=== PATIENT | male | born 1985 | race Caucasian/White ===

== ENCOUNTER 2023-10-20 11:44 | Day surgery (SDC) | payer MEDICARE ==
[2023-10-20] MEDS ORDERED: Decadron 4 MG INJ IV ONE (11:45)
[2023-10-20] MEDS ORDERED: Sodium Chloride 0.9(Preservative Free) 10 ML IJ ONE (11:45)
[2023-10-20] MEDS ORDERED: DIPRIVAN 200 MG/20 ML IV ONE (13:06)
--- NOTE | 2023-10-20 14:13 | XRAY ---
Indication: Left L4-S1 transforaminal CHRISTIAN. Intraoperative fluoroscopy provided for 18 seconds. 5 digital spot image submitted for interpretation demonstrates posterior needle tips projecting over the expected left L4 and L5 nerve roots. Small amount of contrast injected for needle tip placement. Correlate with intraoperative findings/report.
[2023-10-20] MEDS ORDERED: Lactated Ringers 1,000 ML IV ONE (14:36)
--- NOTE | 2023-10-20 15:00 | XRAY ---
18 seconds of fluoroscopy was used in surgery for a left L4-S1 transforaminal CHRISTIAN.
== END 2023-10-20 13:43 | disposition home or self-care (01) ==
LOC: SDC-PAIN 11:44
PROVIDERS: ATTEND Psychiatry & Neurology Pain Medicine
DX: M54.16 Radiculopathy, lumbar region (principal)
CPT/HCPCS: 64483; 64484; 72100; 77003; J1100; J2704; Q9966

== ENCOUNTER 2023-12-01 11:53 | Day surgery (SDC) | payer MEDICARE ==
[2023-12-01] MEDS ORDERED: Sodium Chloride 0.9(Preservative Free) 10 ML IJ ONE (11:54)
[2023-12-01] MEDS ORDERED: Depo-Medrol 40 MG/ML IM ONE (11:54)
[2023-12-01] MEDS ORDERED: DIPRIVAN 200 MG/20 ML IV ONE ×2 (13:45→13:55)
--- NOTE | 2023-12-01 16:32 | XRAY ---
Indication: Caudal CHRISTIAN. Intraoperative fluoroscopy provided for 25 seconds. 4 digital spot images submitted for interpretation demonstrates caudal needle tip projecting mid sacrum. Small amount of contrast injected for needle tip placement. Correlate with intraoperative findings/report.
--- NOTE | 2023-12-01 16:56 | XRAY ---
25 seconds of fluoroscopy was used in surgery for a caudal CHRISTIAN.
== END 2023-12-01 14:20 | disposition home or self-care (01) ==
LOC: SDC-PAIN 11:53
PROVIDERS: ATTEND Psychiatry & Neurology Pain Medicine
DX: M54.16 Radiculopathy, lumbar region (principal)
CPT/HCPCS: 62323; 72220; 77003; J2704; Q9966

== ENCOUNTER 2024-04-13 11:15 | Day surgery (SDC) | payer MEDICARE ==
[2024-04-13] MEDS ORDERED: methylPREDNISolone acetate IM ONE (11:16)
[2024-04-13] MEDS ORDERED: LIDOCAINE HCL 2% 100 MG/5 ML IJ ONE (11:16)
[2024-04-13] MEDS ORDERED: propofoL IV ONE (12:19)
--- NOTE | 2024-04-13 20:55 | XRAY ---
Indication: Bilateral L4-S1 MBB. Intraoperative fluoroscopy provided for 8 seconds. Single digital spot image submitted for interpretation demonstrates posterior needle tips projecting over expected left and right L4-S1 nerve roots. Correlate with intraoperative findings/report.
--- NOTE | 2024-04-13 21:54 | XRAY ---
8 seconds of fluoroscopy was used in surgery for a bilateral L4-S1 MBB.
== END 2024-04-13 12:47 | disposition home or self-care (01) ==
LOC: SDC-PAIN 11:15
PROVIDERS: ATTEND Psychiatry & Neurology Pain Medicine
DX: M47.816 Spondylosis without myelopathy or radiculopathy, lumbar region (principal)
CPT/HCPCS: 64493; 64494; 72020; 77002; J1010; J2704

== ENCOUNTER 2024-10-25 11:58 | Day surgery (SDC) | payer MEDICARE ==
[2024-10-25] MEDS ORDERED: LIDOCAINE HCL 1% 50 MG/5 ML VL IJ ONE (11:59)
[2024-10-25] MEDS ORDERED: methylPREDNISolone acetate IM ONE (11:59)
[2024-10-25] MEDS ORDERED: BUPIVACAINE 0.5% VIAL IJ ONE (11:59)
[2024-10-25] MEDS ORDERED: propofoL IV ONE (15:26)
[2024-10-25] MEDS ORDERED: Lactated Ringers 1,000 ML IV ONE (16:13)
--- NOTE | 2024-10-25 17:03 | XRAY ---
Indication: Right L4-S1 RFA. Intraoperative fluoroscopy provided for 13 seconds. 4 digital spot image submitted for interpretation demonstrates posterior needle tips projecting over expected right L4-S1 nerve roots. Correlate with intraoperative findings/report.
--- NOTE | 2024-10-25 17:09 | XRAY ---
13 seconds of fluoroscopy was used in surgery for a right L4-S1 RFA.
== END 2024-10-25 15:55 | disposition home or self-care (01) ==
LOC: SDC-PAIN 11:58
PROVIDERS: ATTEND Psychiatry & Neurology Pain Medicine
DX: M47.817 Spondylosis without myelopathy or radiculopathy, lumbosacral region (principal)

== ENCOUNTER 2024-11-15 12:29 | Day surgery (SDC) | payer MEDICARE ==
[2024-11-15] MEDS ORDERED: LIDOCAINE HCL 1% 50 MG/5 ML VL IJ ONE (12:30)
[2024-11-15] MEDS ORDERED: methylPREDNISolone acetate IM ONE (12:30)
[2024-11-15] MEDS ORDERED: Sensorcaine 0.25% 10 ML IJ ONE (12:30)
[2024-11-15] MEDS ORDERED: propofoL IV ONE (14:29)
[2024-11-15] MEDS ORDERED: Lactated Ringers 1,000 ML IV ONE (15:20)
--- NOTE | 2024-11-15 16:34 | XRAY ---
Indication: Left L4-S1 RFA. Intraoperative fluoroscopy provided for 16 seconds. 3 digital spot image submitted for interpretation demonstrates posterior needle tips projecting over expected left L4-S1 nerve roots. Correlate with intraoperative findings/report.
--- NOTE | 2024-11-15 16:39 | XRAY ---
16 seconds of fluoroscopy used in surgery for a left L4-S1 RFA.
== END 2024-11-15 15:05 | disposition home or self-care (01) ==
LOC: SDC-PAIN 12:29
PROVIDERS: ATTEND Psychiatry & Neurology Pain Medicine
DX: M47.817 Spondylosis without myelopathy or radiculopathy, lumbosacral region (principal)

== ENCOUNTER 2024-12-20 13:12 | Day surgery (SDC) | payer MEDICARE ==
[2024-12-20] MEDS ORDERED: LIDOCAINE HCL 2% 100 MG/5 ML IJ ONE (13:13)
[2024-12-20] MEDS ORDERED: propofoL IV ONE (16:05)
[2024-12-20] MEDS ORDERED: Lactated Ringers 1,000 ML IV ONE (17:06)
--- NOTE | 2024-12-21 08:36 | XRAY ---
Indication: Left C2-C4 MBB. Intraoperative fluoroscopy provided for 21 seconds. 3 digital spot images submitted for interpretation demonstrates posterior needle tips projecting over expected left C2-C4 nerve roots. Correlate with intraoperative findings/report.
--- NOTE | 2024-12-21 09:35 | XRAY ---
21 seconds of fluoroscopy was used in surgery for a left C2-C4 MBB.
== END 2024-12-20 16:37 | disposition home or self-care (01) ==
LOC: SDC-PAIN 13:12
PROVIDERS: ATTEND Psychiatry & Neurology Pain Medicine
DX: M47.812 Spondylosis without myelopathy or radiculopathy, cervical region (principal)